=== PATIENT | female | born 1955 | race Caucasian/White ===

== ENCOUNTER 2018-08-27 14:34 | Emergency (ER) | payer MEDICAID ==
[~2018-08-27] VITALS: Ht 154.9 cm; Wt 122.5 kg
[2018-08-27 15:36] LABS: Basophils # (auto) 0 uL; Basophils % (auto) 0.8 % (0.0-2.0); Eosinophils # (auto) 0.2 uL; Eosinophils % (auto) 3.6 % (0.0-7.0); Hematocrit 49.2 % (36.0-46.0); Hemoglobin 16.4 g/dL (12.2-16.2); Lymphocytes # (auto) 0.7 uL; Lymphocytes % (auto) 11.9 % (10.0-50.0); Mean Corpuscular Hemoglobin 31.7 pg (28.0-32.0); Mean Corpuscular Hgb Conc. 33.3 g/dL (32.0-36.0); Mean Corpuscular Volume 95.1 fL (80.0-100.0); Monocytes # (auto) 0.6 uL; Monocytes % (auto) 9.3 % (0.0-12.0); Neutrophils # (auto) 4.5 uL; Neutrophils % (auto) 74.4 % (37.0-80.0); Nucleated Red Blood Cells % 0.2 %; Platelet Count (auto) 220 10^3/uL (140-450); Red Blood Cells 5.17 10^6/uL (4.0-5.20); Red Cell Distribution Width 16.2 % (11.8-14.3); White Blood Cell 6.1 10^3/uL (4.4-10.8)
[2018-08-27 15:56] LABS: Albumin 2.7 g/dL (3.4-5.0); Anion Gap 3 (5-15); Blood Urea Nitrogen 13 mg/dL (7-18); Calcium 8.5 mg/dL (8.5-10.1); Carbon Dioxide 33 mmol/L (21-32); Chloride 103 mmol/L (98-107); Glucose 97 mg/dL (74-106); Magnesium 2.2 mg/dL (1.6-2.6); Potassium 3.9 mmol/L (3.5-5.1); Sodium 139 mmol/L (136-145)
[2018-08-27 16:03] LABS: Alanine Aminotransferase 14 U/L (13-56); Alkaline Phosphatase 83 U/L (45-117); Aspartate Aminotransferase 8 U/L (15-37); BUN/Creatinine Ratio 17.1; Bilirubin, Total 0.5 mg/dL (0.2-1.0); GFR African American 99 mL/min; GFR Non-African American 82 mL/min; Total Protein 8.2 g/dL (6.4-8.2)
[2018-08-27] MEDS ORDERED: CLINDAMYCIN 600MG IV 50 ML IV ONE (16:30)
[2018-08-27 18:45] VITALS: BP 111/84
== END 2018-08-27 18:45 | disposition left against medical advice (07) ==
LOC: ER 14:34
DX: L03.313 Cellulitis of chest wall (principal); J44.9 Chronic obstructive pulmonary disease, unspecified; I11.0 Hypertensive heart disease with heart failure; I50.9 Heart failure, unspecified; Z87.891 Personal history of nicotine dependence; Z88.5 Allergy status to narcotic agent; Z88.0 Allergy status to penicillin; Z53.29 Procedure and treatment not carried out because of patient's decision for other reasons
CPT/HCPCS: 36415; 71046; 80053; 82962; 83735; 83880; 84484; 85025; 93005; 96365; 99285; J3490

== ENCOUNTER 2018-11-27 22:28 | Inpatient (IN) | payer MEDICAID ==
[~2018-11-27] VITALS: Ht 157.5 cm; Wt 96.9 kg
[~2018-11-27 22:28] MED LIST: CLIN1CAP4 PO; HYDR-4683 PO; SACC250C PO
[2018-11-27 22:59] LABS: Basophils # (auto) 0 uL; Eosinophils # (auto) 0 uL; Lymphocytes # (auto) 0.6 uL; Monocytes # (auto) 0.7 uL; Neutrophils # (auto) 7.5 uL
[2018-11-27] MEDS ORDERED: IPRATROPIUM BROM 0.5 MG/2.5ML INH SOL NEB ONE (23:00)
[2018-11-27] MEDS ORDERED: ALBUTEROL SULF 2.5 MG/0.5ML(0.5%) NEB SOLN NEB ONE (23:00)
[2018-11-27] MEDS ORDERED: LORazepam 2MG/ML-1ML VIAL IV ONE (23:00)
[2018-11-27 23:01] LABS: Basophils % (auto) 0.2 % (0.0-2.0); Hematocrit 53.2 % (36.0-46.0); Hemoglobin 17.9 g/dL (12.2-16.2); Mean Corpuscular Hemoglobin 31.8 pg (28.0-32.0); Mean Corpuscular Hgb Conc. 33.6 g/dL (32.0-36.0); Mean Corpuscular Volume 94.6 fL (80.0-100.0); Monocytes % (auto) 8.1 % (0.0-12.0); Neutrophils % (auto) 84.7 % (37.0-80.0); Nucleated Red Blood Cells % 0.3 %; Platelet Count (auto) 222 10^3/uL (140-450); Red Blood Cells 5.63 10^6/uL (4.0-5.20); Red Cell Distribution Width 13.9 % (11.8-14.3); White Blood Cell 8.9 10^3/uL (4.4-10.8)
[2018-11-27 23:08] LABS: Albumin 2.6 g/dL (3.4-5.0); BUN/Creatinine Ratio 27.2; Calcium 8.8 mg/dL (8.5-10.1); Magnesium 2.1 mg/dL (1.6-2.6); Potassium 3.6 mmol/L (3.5-5.1)
[2018-11-27 23:15] LABS: Bilirubin, Total 0.5 mg/dL (0.2-1.0); Total Protein 8.3 g/dL (6.4-8.2)
[2018-11-27] MEDS ORDERED: methylPREDNISolone SOD SUCC 125 MG/2 ML VL IV ONE (23:45)
[2018-11-28 00:24] VITALS: BP 109/64
[2018-11-28 02:16] LABS: Urine Bacteria FEW /hpf (None Seen); Urine Blood 1+ /uL (Negative); Urine Hyaline Cast FEW /lpf (0 - 2); Urine Mucus FEW (None Seen); Urine Specific Gravity 1.023 (1.001-1.035); Urine WBC 14 /hpf (0 - 5)
[2018-11-28] MEDS ORDERED: ONDANSETRON HCL 4 MG/2 ML VIAL IV PRN (05:00)
[2018-11-28] MEDS ORDERED: ALBUTEROL SULF 2.5 MG/0.5ML(0.5%) NEB SOLN NEB PRN (05:00)
[2018-11-28] MEDS ORDERED: NITROGLYCERIN 0.4 MG SL TAB SL PRN (05:00)
[2018-11-28] MEDS ORDERED: MORPHINE SULFATE 4 MG/ML SYR/VIAL IV PRN (05:00)
[2018-11-28] MEDS ORDERED: IPRATROPIUM BROM 0.5 MG/2.5ML INH SOL NEB PRN (05:00)
[2018-11-28] MEDS ORDERED: LEVOFLOXACIN 500MG 100 ML IV SCH (06:00)
[2018-11-28] MEDS ORDERED: ATORVASTATIN 20 MG TAB PO ONE (06:00)
[2018-11-28] MEDS ORDERED: ENOXAPARIN SOD 100 MG/1 ML SYRINGE SC ONE (06:00)
[2018-11-28] MEDS: ASPirin 81 mg TAB PO SCH (10:22)
[2018-11-28] MEDS: FAMOTIDINE 20 MG TAB PO SCH ×2 (10:22→22:22)
[2018-11-28] MEDS: methylPREDNISolone SOD SUCC 125 MG/2 ML VL IV SCH ×2 (10:22→22:21)
[2018-11-28] MEDS ORDERED: MORPHINE SULF INJ 2 MG/ML SYRINGE 1ML IV PRN (13:45)
[2018-11-28] MEDS: ALBUTEROL SULF 2.5 MG/0.5ML(0.5%) NEB SOLN NEB SCH ×3 (15:39→22:40)
[2018-11-28] MEDS: IPRATROPIUM BROM 0.5 MG/2.5ML INH SOL NEB SCH ×3 (15:40→22:41)
[2018-11-28 17:00] VITALS: BP 137/80
--- NOTE | 2018-11-28 17:20 | NUR ---
Telemetry admit from ER CHASIDY ROSENORA admitted to Telemetry unit after SBAR received. Patient oriented to Deepika Boothe, primary RN, unit, room, bed, and unit policies regarding patient care and visiting hours. Patient now on continuous telemetry monitoring, tele box # 25 and telemetry reading on arrival to unit is Sinus rhythm. Patient placed on bedside oxygen as ordered via oxymizer, VSS. Pt weighed by bedscale and encouraged to call if they need something. All questions and concerns addressed, patient verbalized understanding. No s/s of distress or sob noted will cont care
[2018-11-28] MEDS: Ensure Enlive Strawberry 8oz Bottle PO SCH (18:00)
--- NOTE | 2018-11-28 18:55 | NUR ---
Wound pics taken cleansed right lower extremity with wound cleanser, padded dry with sterile gauze, wound photos taken, applied alginate dressing and covered with Kerlix as ordered. Patient tolerated it well, no distress noted. Will endorse care to oncoming rn
[2018-11-28] MEDS ORDERED: CEPH500C PO (19:26)
[2018-11-28] MEDS ORDERED: SULF400I3 PO (19:26)
[2018-11-28] MEDS ORDERED: METH4TAB7 PO (19:26)
[2018-11-28] MEDS ORDERED: FLUT0.05 NAS (19:26)
[2018-11-28] MEDS ORDERED: LOSA-46 PO (19:26)
[2018-11-28] MEDS ORDERED: CARV3.1240 PO (19:26)
--- NOTE | 2018-11-28 19:40 | NUR ---
Opening Shift Note Assumed care of patient, awake and alert. No complains of pain. Patient on oxymizer at 6 LPM with O2sat at 90%. Instructed on POC and to call for assist PRN, will continue to monitor for changes Q1hr and PRN.
--- NOTE | 2018-11-28 20:15 | NUR ---
Per report, patient apparently have a pocket knife. Black backpack was checked by patient in front of security systems manager. No pocket knife seen. Per patient she probably left it at her place. Care continued.
[2018-11-28 21:42] VITALS: BP 123/56
[2018-11-28] MEDS: DOCUSATE SOD 100 MG CAP PO SCH (22:00)
[2018-11-28] MEDS: ATORVASTATIN 20 MG TAB PO SCH (22:22)
[2018-11-28] MEDS: BUDESONIDE (INHALATION) 0.5 MG/2 ML NEB NEB SCH (22:41)
[2018-11-29] MEDS: IPRATROPIUM BROM 0.5 MG/2.5ML INH SOL NEB SCH ×5 (02:16→19:39)
[2018-11-29] MEDS: ALBUTEROL SULF 2.5 MG/0.5ML(0.5%) NEB SOLN NEB SCH ×5 (02:16→19:39)
[2018-11-29 04:10] VITALS: BP 106/74
[2018-11-29 04:52] VITALS: BP 121/62
--- NOTE | 2018-11-29 06:35 | NUR ---
PT TAKEN OFF BIPAP AT THIS TIME AND PLACE DON 4LITERS OXYMIZER. SPO2 93%. NO S/S OF RESPIRATORY DISTRESS.
[2018-11-29] MEDS: Ensure Enlive Strawberry 8oz Bottle PO SCH ×3 (08:44→18:00)
[2018-11-29 08:53] VITALS: BP 112/60
[2018-11-29 08:53] LABS: Basophils # (auto) 0 uL; Basophils % (auto) 0.3 % (0.0-2.0); Eosinophils # (auto) 0 uL; Hematocrit 51.3 % (36.0-46.0); Hemoglobin 16.6 g/dL (12.2-16.2); Lymphocytes # (auto) 0.2 uL; Lymphocytes % (auto) 2.6 % (10.0-50.0); Mean Corpuscular Hemoglobin 31.6 pg (28.0-32.0); Mean Corpuscular Hgb Conc. 32.4 g/dL (32.0-36.0); Mean Corpuscular Volume 97.7 fL (80.0-100.0); Monocytes # (auto) 0.2 uL; Monocytes % (auto) 2.6 % (0.0-12.0); Neutrophils # (auto) 7.7 uL; Neutrophils % (auto) 94.5 % (37.0-80.0); Nucleated Red Blood Cells % 0.1 %; Platelet Count (auto) 152 10^3/uL (140-450); Red Blood Cells 5.25 10^6/uL (4.0-5.20); White Blood Cell 8.1 10^3/uL (4.4-10.8)
[2018-11-29] MEDS: DOCUSATE SOD 100 MG CAP PO SCH ×2 (10:00→21:48)
[2018-11-29] MEDS ORDERED: LEVOFLOXACIN 750MG 150 ML IV SCH (10:00)
[2018-11-29] MEDS: methylPREDNISolone SOD SUCC 125 MG/2 ML VL IV SCH ×2 (10:14→23:25)
[2018-11-29] MEDS: ASPirin 81 mg TAB PO SCH (10:15)
[2018-11-29] MEDS: ENOXAPARIN SOD 40 MG/0.4 ML SYRINGE SC SCH (10:15)
[2018-11-29] MEDS: FAMOTIDINE 20 MG TAB PO SCH ×2 (10:16→21:49)
[2018-11-29] MEDS: BUDESONIDE (INHALATION) 0.5 MG/2 ML NEB NEB SCH ×2 (10:46→19:40)
[2018-11-29 12:57] VITALS: BP 107/60
[2018-11-29 13:16] LABS: BUN/Creatinine Ratio 34.3; Calcium 8.5 mg/dL (8.5-10.1)
[2018-11-29 13:17] LABS: Albumin 2.3 g/dL (3.4-5.0); Bilirubin, Total 0.3 mg/dL (0.2-1.0); Total Protein 7.1 g/dL (6.4-8.2)
--- NOTE | 2018-11-29 14:30 | NUR ---
Patient provided bed bath Pt had her hair brushed and untangled by tech. Patient sitting up in bed. O2 at 10 L via oxymizer. Will cont to monitor. No acute distress or sob noted
--- NOTE | 2018-11-29 15:05 | NUR ---
Spoke to caser I spoke to Bren caser dish up person and informed her of pending social service consult. She states she will f/u tomorrow. Will cont care
[2018-11-29 16:57] VITALS: BP 130/75
--- NOTE | 2018-11-29 18:30 | NUR ---
Patient repositioned in bed no s/s of acute distress noted. Pt on Oxymizer at 10 L sat 88-91%. Flores patent, draining to gravity. RLE wound noted asymptomatic and dry. Call light within reach.
--- NOTE | 2018-11-29 18:45 | NUR ---
IV out I was informed by SUMMER Garcia that pt's IV noted out. Upon assessment, IV site noted bleeding. Pressure dressing applied. Pt tolerated well. Flores catheter noted mildly leaking, repositioned Flores cullen because pt noted tugging on it. Will endorse to oncoming rn. WHEELER at bedside to do complete linen change at this time.
--- NOTE | 2018-11-29 19:13 | NUR ---
Spoke to MD I spoke to MD Bethea and clarified order for "communication order doxy". Per MD d/c Santos and order Doxycycline 100mg PO BID. Will input correct order and I informed Primary rn Radha.
[2018-11-29] MEDS: DOXYCYCLINE 100 MG TAB/CAP PO SCH (21:49)
[2018-11-29] MEDS: ATORVASTATIN 20 MG TAB PO SCH (21:49)
[2018-11-29 22:00] VITALS: BP 112/62
[2018-11-29] MEDS ORDERED: ALBUTEROL SULF 2.5 MG/0.5ML(0.5%) NEB SOLN ONE (22:23)
[2018-11-29] MEDS ORDERED: IPRATROPIUM BROM 0.5 MG/2.5ML INH SOL ONE (22:23)
--- NOTE | 2018-11-29 22:44 | NUR ---
Respiratory note: PT REFUSE BIPAP AT THIS TIME, STATES SHE IS NOT GOING TO WEAR IT TONIGHT
--- NOTE | 2018-11-29 23:25 | NUR ---
Solumedrol IV given as scheduled, as ordered by MD. When Patient was asked why she refused BIPAP, she denied refusing treatment, saying that respiratory therapist apparently told him that she does not need to wear the BIPAP machine. Respiratory therapist paged. Care continued.
--- NOTE | 2018-11-29 23:30 | NUR ---
Call back received from respiratory therapist. updated with patient's status. Requested Respiratory therapist to be at bedside to clarify things.
--- NOTE | 2018-11-29 23:42 | NUR ---
Respiratory note:SPOKE TO PT AT THIS TIME ABOUT WEARING BIPAP WITH RN AT BEDSIDE, PT CONTINUES TO REFUSE BIPAP. PT NOTIFIED THAT COULD POSSIBLY BE THE OUTCOME IF SHE DOESNT WEAR IT. PT CONTINUES TO REFUSE
--- NOTE | 2018-11-29 23:42 | NUR ---
At bedside with respiratory therapist. Respiratory therapist asked her if she's ready for the BIPAP. Patient refused. Respiratory therapist and myself re-educated patient regarding the benefits of the treatment, versus the risks of her refusal of treatment which includes, but not limited to injury, worsening of her present condition, even . Patient continued to refuse treatment. Care continued.
--- NOTE | 2018-11-30 | NUR ---
Patient asked to sign paper that she is refusing treatment. Instead of signing, patient wrote on the paper that she has been forced and threatened. No such thing occurred. Patient saying that her numbers are good and that she does not need further treatment at this time. Even with re-education, patient insisting that she does not need to wear BIPAP machine. Yesterday, patient was able to tolerate 6LPM oxymizer. Respiratory had been following up with patient and adjusting oxymizer. At this time, patient has to be on 10 LPM oxymizer. No changes in the patient's perception. Care continued.
[2018-11-30] MEDS: ACETAMINOPHEN 325 MG TAB PO PRN (02:19)
--- NOTE | 2018-11-30 02:19 | NUR ---
Patient complained of headache. Tylenol given as ordered by . Care continued.
[2018-11-30] MEDS: HYDROcodone-ACET 5/325MG TAB PO PRN ×2 (03:22→21:29)
--- NOTE | 2018-11-30 03:23 | NUR ---
Patient complained she is still in pain. [place] PO given per prn for pain. Care continued.
[2018-11-30 05:00] VITALS: BP 131/55
[2018-11-30] MEDS: ALBUTEROL SULF 2.5 MG/0.5ML(0.5%) NEB SOLN NEB SCH ×4 (05:56→20:27)
[2018-11-30] MEDS: BUDESONIDE (INHALATION) 0.5 MG/2 ML NEB NEB SCH ×2 (05:56→20:27)
[2018-11-30] MEDS: IPRATROPIUM BROM 0.5 MG/2.5ML INH SOL NEB SCH ×4 (05:57→20:27)
[2018-11-30] MEDS: methylPREDNISolone SOD SUCC 125 MG/2 ML VL IV SCH ×3 (06:21→18:01)
--- NOTE | 2018-11-30 07:15 | NUR ---
Opening Shift Note Report received and assumed care of patient, awake and alert. Oxymizer at 10 liters in use continues pulse oximeter in used. No S/S of distress/SOB c/o tolerable back pain. Instructed on POC,nursing routines,call light within reach patient reminded instructed to call for assistance and PRN, will continue to monitor for changes Q1hr and PRN.
[2018-11-30] MEDS: Ensure Enlive Strawberry 8oz Bottle PO SCH ×3 (08:00→18:01)
[2018-11-30 09:00] VITALS: BP 135/73
[2018-11-30] MEDS: ENOXAPARIN SOD 40 MG/0.4 ML SYRINGE SC SCH (09:59)
[2018-11-30] MEDS: DOXYCYCLINE 100 MG TAB/CAP PO SCH ×2 (09:59→21:27)
[2018-11-30] MEDS: DOCUSATE SOD 100 MG CAP PO SCH ×2 (10:00→21:36)
[2018-11-30] MEDS: ASPirin 81 mg TAB PO SCH (10:00)
[2018-11-30] MEDS: FAMOTIDINE 20 MG TAB PO SCH ×2 (10:00→21:28)
--- NOTE | 2018-11-30 10:00 | NUR ---
ASSISTED TO BEDSIDE COMMODE WITH MINIMAL ASSISTANCE,HAD A BOWEL MOVEMENT
[2018-11-30 13:00] VITALS: BP 143/74
--- NOTE | 2018-11-30 13:00 | NUR ---
MD VISIT DR. GROSS HERE TO SEE AND EXAMINED PATIENT
--- NOTE | 2018-11-30 15:26 | NUR ---
PATIENT HAS BEEN ACCEPTED BY [facility] [place] [facility] [phone]. START OF CARE WILL BE 24 TO 48 HOURS POST DISCHARGE.
[2018-11-30 17:10] VITALS: BP 118/65
--- NOTE | 2018-11-30 18:48 | NUR ---
No sob,no distress no c/o pain
--- NOTE | 2018-11-30 19:15 | NUR ---
REPORT GIVEN TO EMMY FOR CONTINUATION OF CARE NO DISTRESS NO DISCOMFORT
--- NOTE | 2018-11-30 19:34 | NUR ---
Opening Shift Note SBAR report received from MISSY Rodríguez. Assumed care of patient, awake and alert 4x, resting in bed,eating her dinner. At tele unit receiving Tx for ACUTE COPd EXACERBATION. Denies distress/SOB or pain at the moment, wearing Oxymizer at 10L. Instructed on POC, Pt states that " She does NOT want the Bipap Machine tonight". Also instructed to call for assist PRN, will continue to monitor for changes Q1hr and PRN
[2018-11-30 20:24] VITALS: BP 123/63
[2018-11-30] MEDS: ATORVASTATIN 20 MG TAB PO SCH (21:28)
[2018-11-30] MEDS: TEMAZEPAM 15 MG CAP PO PRN (21:28)
[2018-11-30 22:00] VITALS: BP 123/63
--- NOTE | 2018-11-30 23:01 | NUR ---
PATIENT CARE ENDORSED TO MISSY BARRIENTOS. PT RESTING IN ROOM, STABLE, REFUSES TO WEAR BiPAP.
--- NOTE | 2018-11-30 23:02 | NUR ---
RECEIVED REPORT FROM CRYSTAL SHAH
--- NOTE | 2018-11-30 23:15 | NUR ---
ROUNDS PATIENT SLEEPING IN BED, OXYMIZER AT 10l SATURATION AT 93%, RESPIRATIONS EVEN AND UNLABORED. NO S/S OF PAIN OR DISTRESS NOTED. PER REPORT PATIENT REFUSING BIPAP.
[2018-12-01] MEDS: methylPREDNISolone SOD SUCC 125 MG/2 ML VL IV SCH ×6 (01:50→23:49)
[2018-12-01 05:22] VITALS: BP 126/70
[2018-12-01] MEDS: HYDROcodone-ACET 5/325MG TAB PO PRN ×2 (06:01→20:49)
[2018-12-01] MEDS: ALBUTEROL SULF 2.5 MG/0.5ML(0.5%) NEB SOLN NEB SCH ×4 (06:14→19:20)
[2018-12-01] MEDS: IPRATROPIUM BROM 0.5 MG/2.5ML INH SOL NEB SCH ×4 (06:14→19:20)
--- NOTE | 2018-12-01 06:14 | NUR ---
PT IS AWAKE, ALERT AND ORIENTED. PT IS OFF BIPAP. PT ON 10L/MIN VIA OXYMIZER. 91%-93% O2 SATS, HR 71 BPM, RR22, BS ARE INSPIRATORY AND INSPIRATORY DIMINISHED, SKIN IS WARM AND DRY TO THE TOUCH. NO SOB OR ANY OTHER RESPIRATORY DISTRESS NOTICED. PT REQUESTING TO HAVE THE BIPAP TAKEN "OFF THE ROOM" SHE WILL "NOT WEAR IT." PT ESTATES SHE DOES "NOT NEED IT NOR WANT IT." MN TX GIVEN AT THIS TIME WITH 2.5MG ALBUTEROL AND 0.5MG ATROVENT VIA MOUTH PIECE. NO ADVERSE REACTION NOTED. WILL CONTINUE TO MONITOR PT. MISSY BLACK WAS NOTIFIED.
[2018-12-01] MEDS: Ensure Enlive Strawberry 8oz Bottle PO SCH ×3 (08:58→17:55)
[2018-12-01 09:04] VITALS: BP 110/64
[2018-12-01] MEDS: DOXYCYCLINE 100 MG TAB/CAP PO SCH ×2 (09:51→22:08)
[2018-12-01] MEDS: ENOXAPARIN SOD 40 MG/0.4 ML SYRINGE SC SCH (09:51)
[2018-12-01] MEDS: FAMOTIDINE 20 MG TAB PO SCH ×2 (09:51→22:08)
[2018-12-01] MEDS: DOCUSATE SOD 100 MG CAP PO SCH ×2 (09:52→22:08)
[2018-12-01] MEDS: ASPirin 81 mg TAB PO SCH (09:52)
--- NOTE | 2018-12-01 10:00 | NUR ---
NO C/O PAIN, NO DISTRESS NO C/O SOB
[2018-12-01] MEDS: BUDESONIDE (INHALATION) 0.5 MG/2 ML NEB NEB SCH ×2 (10:02→20:59)
--- NOTE | 2018-12-01 11:20 | NUR ---
C/O DIZZINESS PATIENT STATED NOT SURE IF ITS FROM THE ASPIRIN,STATED SHE GETS IT EVERYDAY WHEN SHE TAKES HER MEDICATION. PATIENT NOTED ROCKING HER SELF BACK AND FORTH,PATIENT MADE AWARE OF HER ROCKING MOVEMENT CAN CAUSE DIZZINESS .
[2018-12-01 13:00] VITALS: BP 119/51
--- NOTE | 2018-12-01 13:00 | NUR ---
DR. PAGAN INFORMED OF C/O DIZZINESS
[2018-12-01] MEDS ORDERED: MORPHINE SULFATE 4 MG/ML SYR/VIAL IV PRN (14:00)
[2018-12-01] MEDS ORDERED: MORPHINE SULF INJ 2 MG/ML SYRINGE 1ML IV PRN (14:00)
--- NOTE | 2018-12-01 15:47 | NUR ---
C/o of soreness under breast,checked and assessed moisture redness noted, informed orders received
[2018-12-01 17:00] VITALS: BP 115/62
--- NOTE | 2018-12-01 17:16 | NUR ---
assessment Patient is a 63 year old female who is alert and oriented. Prior to admission patient lived home with her sister Melissa and functioned with assistance. Per patient she has a fww and 02 for home use. Patient informed me she does not like living with her sister Melissa. I have offered patient resources for board and cares and room and boards. Patient refused stating she does not want to pay for placement she has bills. Patients post discharge needs to be determined prior to discharge. I have also provided patient with [facility] resource. I informed patient she has a right to speak to a social work therapist regarding all care. I informed patient she has a right to participate in any and all discharge planning. Patient is aware of visiting hours on the hospital floor. I informed patient she has a right to privacy. Patient does not have a POA and advanced directive. I have offered patient information on POA and advanced directives. I informed the patient the advantages and benefits of having an Advanced Directive. Patient verbalized understanding and agreed to discharge plan. Addendum: 12/01/18 at 1720 by Letha SERNA Amended: Links added.
--- NOTE | 2018-12-01 19:13 | NUR ---
Report given to incoming NOC shift RN,patient in no distress nod discomfort
--- NOTE | 2018-12-01 21:30 | NUR ---
HAND OFF REPORT GIVEN PATIENT STABLE AT THIS TIME. NO DISTRESS OR PAIN NOTED
[2018-12-01 22:00] VITALS: BP 116/62
[2018-12-01] MEDS: ATORVASTATIN 20 MG TAB PO SCH (22:08)
[2018-12-01] MEDS: NYSTATIN TOPICAL POWDER 15GM TOP SCH (22:09)
[2018-12-02 05:00] VITALS: BP 148/77
[2018-12-02] MEDS: methylPREDNISolone SOD SUCC 125 MG/2 ML VL IV SCH ×3 (06:03→17:56)
[2018-12-02 06:23] LABS: Basophils # (auto) 0 uL; Eosinophils # (auto) 0 uL; Hematocrit 46.2 % (36.0-46.0); Hemoglobin 15.3 g/dL (12.2-16.2); Lymphocytes # (auto) 0.1 uL; Lymphocytes % (auto) 1.6 % (10.0-50.0); Mean Corpuscular Hemoglobin 31.4 pg (28.0-32.0); Mean Corpuscular Hgb Conc. 33.2 g/dL (32.0-36.0); Mean Corpuscular Volume 94.4 fL (80.0-100.0); Monocytes # (auto) 0.4 uL; Monocytes % (auto) 4.5 % (0.0-12.0); Neutrophils # (auto) 7.9 uL; Neutrophils % (auto) 93.9 % (37.0-80.0); Platelet Count (auto) 272 10^3/uL (140-450); Red Blood Cells 4.89 10^6/uL (4.0-5.20); Red Cell Distribution Width 13.7 % (11.8-14.3); White Blood Cell 8.4 10^3/uL (4.4-10.8)
[2018-12-02 06:28] LABS: BUN/Creatinine Ratio 46.6; Calcium 8.4 mg/dL (8.5-10.1); Potassium 4.5 mmol/L (3.5-5.1)
[2018-12-02] MEDS: HYDROcodone-ACET 5/325MG TAB PO PRN (07:15)
--- NOTE | 2018-12-02 07:20 | NUR ---
Patient complaining of sore throat and itchiness, [place] given. Informed dayshift MISSY Avendaoñ to request for medication if symptoms not relieved.
--- NOTE | 2018-12-02 07:40 | NUR ---
OPENING NOTE Assumed care of patient from NOC RNTori. Patient awake and alert with no S/S of distress/SOB or pain. Oxymizer in position, connected to 10L 02. Patient sitting on side of bed, leaning on side table. States that it's "easier for me to breathe in this position". Flores catheter intact, patent and hung below bed. Instructed on POC and to call for assist PRN, verbalized understanding. Bed in lowest, locked position with side rails up x2. Fall precautions in place and call light within reach. Will continue to monitor for changes Q1hr and PRN.
[2018-12-02] MEDS: IPRATROPIUM BROM 0.5 MG/2.5ML INH SOL NEB SCH ×4 (08:03→19:18)
[2018-12-02] MEDS: ALBUTEROL SULF 2.5 MG/0.5ML(0.5%) NEB SOLN NEB SCH ×4 (08:04→19:18)
[2018-12-02] MEDS: Ensure Enlive Strawberry 8oz Bottle PO SCH ×3 (08:19→18:00)
[2018-12-02 08:26] VITALS: BP 143/65
[2018-12-02] MEDS: ASPirin 81 mg TAB PO SCH (09:49)
[2018-12-02] MEDS: FAMOTIDINE 20 MG TAB PO SCH ×2 (09:50→22:20)
[2018-12-02] MEDS: ENOXAPARIN SOD 40 MG/0.4 ML SYRINGE SC SCH (09:50)
[2018-12-02] MEDS: NYSTATIN TOPICAL POWDER 15GM TOP SCH ×2 (09:50→22:20)
[2018-12-02] MEDS: DOXYCYCLINE 100 MG TAB/CAP PO SCH ×2 (09:50→22:20)
[2018-12-02] MEDS: DOCUSATE SOD 100 MG CAP PO SCH ×2 (09:50→22:20)
[2018-12-02] MEDS: BUDESONIDE (INHALATION) 0.5 MG/2 ML NEB NEB SCH ×2 (10:41→19:18)
--- NOTE | 2018-12-02 12:30 | NUR ---
RT NOTE: PT PLACED ONTO 80% COOL AEROSOL PER DR WESTFALL ORDERS. ABG ATTEMPTED TWICE BUT WAS UNSUCCESSFUL. PAGING ANOTHER RT TO ASSIST.
--- NOTE | 2018-12-02 12:54 | NUR ---
Nutrition Assessment Notes please see attached link for complete assessment Est. Needs BW [id number] kcal (20-23 kcal/kgBW), 71-78 gms pro (1.0-1.1 gms/kgBW). Will continue to monitor pertinent labs and reassess nutrient need prn Addendum: 12/02/18 at [address] Amended: Links added.
[2018-12-02 13:00] VITALS: BP 119/74
--- NOTE | 2018-12-02 14:47 | NUR ---
RT NOTE: PT O2 DECREASED FROM 80% TO 50% VIA COOL AEROSOL.
[2018-12-02 17:00] VITALS: BP 149/84
--- NOTE | 2018-12-02 17:39 | NUR ---
PAGED Paged on-call hospitalist. Patient C/O itching in ears and swollen throat. No S/S of distress noted. Patient is requesting Benadryl. Awaiting call back.
--- NOTE | 2018-12-02 17:55 | NUR ---
OXYGEN MASK Patient refusing to wear cool mist mask. States that "her throat feels swollen and the mask is making it harder to breathe". States that she can breathe better with Oxymizer. Patient currently wearing 10L O2 with Oxymizer. Still awaiting call back from representative government relations hospitalist. RT also paged.
[2018-12-02] MEDS ORDERED: diphenhdrAMINE HCL 50 MG/1 ML VL IV ONE (19:00)
--- NOTE | 2018-12-02 19:40 | NUR ---
OPENING NOTE PATIENT SITTING UP AT BEDSIDE ON 10L OXYMIZER TALKING TO FAMILY MEMBER AT BEDSIDE. 02 SAT CURRENTLY 94%, HR 105. PATIENT GIVEN BENADRYL 1 TIME DOSE ORDERED FOR ITCHING. IV TO LEFT WRIST NOTED, SALINE FLUSHED. LUNG SOUNDS DIMINISHED THROUGHOUT. EASON CATHETER EMPTIED AT THIS TIME, CLEAR YELLOW URINE NOTED. EASON PATENT AND DRAINING TO GRAVITY. CALL LIGHT WITHIN REACH. WILL CONTINUE TO MONITOR.
--- NOTE | 2018-12-02 19:45 | NUR ---
CLOSING NOTE Endorsed care of patient to NOC Ivette LOUIS.
[2018-12-02 22:00] VITALS: BP 148/84
[2018-12-02] MEDS: ATORVASTATIN 20 MG TAB PO SCH (22:20)
[2018-12-03] MEDS: methylPREDNISolone SOD SUCC 125 MG/2 ML VL IV SCH ×4 (00:13→18:41)
--- NOTE | 2018-12-03 03:30 | NUR ---
ROUNDS PATIENT RESTING IN BED WITH EYES CLOSED. RESPIRATIONS EVEN AND REGULAR. NO S/S OF DISTRESS NOTED. O2 SAT AT 99% ON 10L OXYMIZER, HR 76BPM. BED ALARM ON. CALL LIGHT WITHIN REACH.
[2018-12-03 05:52] VITALS: BP 127/78
[2018-12-03] MEDS: IPRATROPIUM BROM 0.5 MG/2.5ML INH SOL NEB SCH ×4 (06:52→19:38)
[2018-12-03] MEDS: ALBUTEROL SULF 2.5 MG/0.5ML(0.5%) NEB SOLN NEB SCH ×4 (06:53→19:38)
--- NOTE | 2018-12-03 07:45 | NUR ---
PT RESTING IN BED WITH EYES CLOSED. ON 8L VIA OXYMIZER BREATHING EVEN UNLABORED. NO S/S OF ACUTE DISTRESS NOTED. BED LOCKED IN THE LOWEST POSITION, CALL LIGHT WITHIN EASY REACH, WILL CONTINUE CARE.
[2018-12-03 08:00] VITALS: BP 135/74
[2018-12-03 08:58] VITALS: BP 135/74
[2018-12-03] MEDS: FAMOTIDINE 20 MG TAB PO SCH ×2 (09:48→22:38)
[2018-12-03] MEDS: DOXYCYCLINE 100 MG TAB/CAP PO SCH ×2 (09:48→22:37)
[2018-12-03] MEDS: DOCUSATE SOD 100 MG CAP PO SCH ×2 (09:48→22:38)
[2018-12-03] MEDS: ASPirin 81 mg TAB PO SCH (09:48)
[2018-12-03] MEDS: ENOXAPARIN SOD 40 MG/0.4 ML SYRINGE SC SCH (09:49)
[2018-12-03] MEDS: Ensure Enlive Strawberry 8oz Bottle PO SCH ×3 (09:49→18:41)
[2018-12-03] MEDS: BUDESONIDE (INHALATION) 0.5 MG/2 ML NEB NEB SCH ×2 (10:00→19:38)
[2018-12-03] MEDS: NYSTATIN TOPICAL POWDER 15GM TOP SCH ×2 (10:00→22:37)
[2018-12-03 13:00] VITALS: BP 137/73
[2018-12-03 17:59] VITALS: BP 138/81
--- NOTE | 2018-12-03 19:35 | NUR ---
CARE ENDORSED TO MOO LOUIS.
[2018-12-03 21:42] VITALS: BP 123/68
[2018-12-03] MEDS: ATORVASTATIN 20 MG TAB PO SCH (22:37)
[2018-12-04] VITALS (7 sets, daily range): BP systolic 119–143; BP diastolic 70–86
[2018-12-04] MEDS: methylPREDNISolone SOD SUCC 125 MG/2 ML VL IV SCH ×4 (00:25→17:48)
[2018-12-04] MEDS: BUDESONIDE (INHALATION) 0.5 MG/2 ML NEB NEB SCH ×2 (06:30→17:58)
[2018-12-04] MEDS: ALBUTEROL SULF 2.5 MG/0.5ML(0.5%) NEB SOLN NEB SCH ×4 (06:30→17:58)
[2018-12-04] MEDS: IPRATROPIUM BROM 0.5 MG/2.5ML INH SOL NEB SCH ×4 (06:30→17:58)
[2018-12-04] MEDS: DOCUSATE SOD 100 MG CAP PO SCH ×2 (10:22→21:35)
[2018-12-04] MEDS: ASPirin 81 mg TAB PO SCH (10:23)
[2018-12-04] MEDS: DOXYCYCLINE 100 MG TAB/CAP PO SCH ×2 (10:23→21:37)
[2018-12-04] MEDS: Ensure Enlive Strawberry 8oz Bottle PO SCH ×3 (10:23→17:49)
[2018-12-04] MEDS: ENOXAPARIN SOD 40 MG/0.4 ML SYRINGE SC SCH (10:23)
[2018-12-04] MEDS: FAMOTIDINE 20 MG TAB PO SCH ×2 (10:23→21:35)
[2018-12-04] MEDS: NYSTATIN TOPICAL POWDER 15GM TOP SCH ×2 (10:26→21:37)
--- NOTE | 2018-12-04 14:00 | NUR ---
Flores catheter dc'd F/C leaking. Flores dc'd with clean technique following deflation of balloon. Patient tolerated well with no complaints of pain. Continue care.
--- NOTE | 2018-12-04 14:15 | NUR ---
Flores catheter insertion Patient educated on catheter and reason for insertion. All questions answered. Flores catheter 14 guage Liberian inserted with clean sterile technique. Patient tolerated well.
--- NOTE | 2018-12-04 18:08 | NUR ---
Respiratory note: ABG RESULTS REPORTED TO DR. ALVAREZ. NO NEW RESPIRATORY ORDERS GIVEN, WILL CONTINUE TO MONITOR.
--- NOTE | 2018-12-04 19:40 | NUR ---
OPENING SHIFT NOTE RECEIVED REPORT FROM DAYSHIFT RN. PATIENT SITTING ON SIDE OF BED. NO S/S OF DISTRESS OR SOB. NO PAIN NOTED OR REPORTED. PATIENT A/O X4. PATIENT ON 8L OXYMIZER, O2 SATURATION 95%. PATIENT COMPLAINS OF RASH UNDER RIGHT BREAST. CLEANED, DRIED, APPLIED ANTI FUNGAL CREAM AND NYSTATIN TO AFFECTED AREA. UPDATED PATIENT ON POC, VERBALIZED UNDERSTANDING. BED LOCKED IN LOW POSITION, CALL LIGHT WITHIN REACH. WILL CONTINUE TO MONITOR PATIENT Q1HR AND PRN.
--- NOTE | 2018-12-04 19:56 | NUR ---
CARE ENDORSED TO EVELYN LOUIS.
[2018-12-04] MEDS: ATORVASTATIN 20 MG TAB PO SCH (21:35)
[2018-12-04] MEDS ORDERED: diphenhdrAMINE HCL 25 MG CAP PO ONE (22:00)
[2018-12-05] MEDS: methylPREDNISolone SOD SUCC 125 MG/2 ML VL IV SCH ×5 (00:18→23:59)
[2018-12-05 05:12] VITALS: BP 149/83
[2018-12-05] MEDS: ALBUTEROL SULF 2.5 MG/0.5ML(0.5%) NEB SOLN NEB SCH ×5 (07:05→22:06)
[2018-12-05] MEDS: IPRATROPIUM BROM 0.5 MG/2.5ML INH SOL NEB SCH ×5 (07:06→22:06)
[2018-12-05] MEDS: BUDESONIDE (INHALATION) 0.5 MG/2 ML NEB NEB SCH ×2 (07:06→18:53)
--- NOTE | 2018-12-05 07:45 | NUR ---
Opening Shift Note Assumed care of patient, awake and alert. On 10l O2 via Oxymizer, no s/s or sob or discomfort at this time. Instructed on POC and to call for assist PRN, Bed locked in the lowest position, call light within easy reach, will continue to monitor for changes Q1hr and PRN.
[2018-12-05 08:00] VITALS: BP 127/81
[2018-12-05] MEDS: Ensure Enlive Strawberry 8oz Bottle PO SCH ×3 (08:37→17:18)
[2018-12-05 09:23] VITALS: BP 128/81
[2018-12-05] MEDS: DOXYCYCLINE 100 MG TAB/CAP PO SCH ×2 (09:34→22:27)
[2018-12-05] MEDS: DOCUSATE SOD 100 MG CAP PO SCH ×2 (09:34→22:28)
[2018-12-05] MEDS: ASPirin 81 mg TAB PO SCH (09:35)
[2018-12-05] MEDS: ENOXAPARIN SOD 40 MG/0.4 ML SYRINGE SC SCH (09:35)
[2018-12-05] MEDS: NYSTATIN TOPICAL POWDER 15GM TOP SCH ×2 (09:35→22:28)
[2018-12-05] MEDS: FAMOTIDINE 20 MG TAB PO SCH ×2 (09:35→22:27)
[2018-12-05 12:30] VITALS: BP 126/78
--- NOTE | 2018-12-05 15:53 | NUR ---
Nutrition Follow-up Notes Wt.: 120.0 kg as of yesterday. Pt's on oxymizer, asleep, no immediate family member at bedside during rounds this morning. Pt's no signs of distress noted earlier, currently on Cardiac: 2 gms Na, Low Chol, Low Fat diet with adequate PO intake aeb 80% ave. consumed meals (x6) in last 2.5 days. Noted pt's for active ENT consult. Est. Needs BW [id number] kcal (20-23 kcal/kgBW), 71-78 gms pro (1.0-1.1 gms/kgBW). Will continue to monitor pertinent labs and reassess nutrient need prn Labs: No new labs since 12/02/18 Gluc 132 H, Cl 95 L, CO2 35 H, BUN 27 H, Ca 8.4 L; Alb 2.3 L. Skin: Sourav scale 16, mod risk, pt's right lower extremity open wound per prototype fabricator. Pls refer for Wound care consult prn. GI: Pt had 1 BM yesterday per prototype fabricator. PES: Altered nutrition related lab values r/t current/chronic medical condition aeb elev BUN, hypocalcemia, mild hypoalb Obesity r/t food intake more than body requirement aeb 240% IBW. BMI 48.4 kg/m2 and increased body adiposity. Will continue to monitor PO intake, skin status, pertinent labs and weight trend. F/u in 3 to 5 days. Rec.: 1.) Consider to continue monitoring pertinent labs; If Albumin level continues trending down, consider Prostat 1 pkt BID. 3.) Consider daily MVI with minerals and Asc acid 500 mgs BID. 3.) Continue close supervision during meals. 4.) Refer pt to RD for further nutrition education and weight monitoring upon discharge. 5.) Continue current plan of care.
[2018-12-05 16:21] VITALS: BP 119/68
--- NOTE | 2018-12-05 16:35 | NUR ---
OBTAINED NEW ORDER FROM DR. POLLARD, BENADRYL 25MG IV Q6HR PRN. ORDER READ BACK AND VERIFIED, WILL PUT IN ORDER.
--- NOTE | 2018-12-05 16:42 | NUR ---
DR. POLLARD AT BEDSIDE.
[2018-12-05] MEDS: diphenhdrAMINE HCL 50 MG/1 ML VL IV PRN ×3 (17:18→23:10)
--- NOTE | 2018-12-05 19:48 | NUR ---
CARE ENDORSED TO RADHA LOUIS.
[2018-12-05 21:58] VITALS: BP 118/55
[2018-12-05] MEDS: ATORVASTATIN 20 MG TAB PO SCH (22:26)
[2018-12-05] MEDS: HYDROcodone-ACET 5/325MG TAB PO PRN (22:28)
[2018-12-05] MEDS: TEMAZEPAM 15 MG CAP PO PRN (22:28)
[2018-12-06 05:00] VITALS: BP 124/64
[2018-12-06] MEDS: BUDESONIDE (INHALATION) 0.5 MG/2 ML NEB NEB SCH ×2 (06:07→19:29)
[2018-12-06] MEDS: ALBUTEROL SULF 2.5 MG/0.5ML(0.5%) NEB SOLN NEB SCH ×4 (06:07→19:28)
[2018-12-06] MEDS: IPRATROPIUM BROM 0.5 MG/2.5ML INH SOL NEB SCH ×4 (06:07→19:28)
[2018-12-06] MEDS: methylPREDNISolone SOD SUCC 125 MG/2 ML VL IV SCH ×4 (06:30→23:42)
[2018-12-06 06:36] LABS: Basophils # (auto) 0 uL; Basophils % (auto) 0.1 % (0.0-2.0); Eosinophils # (auto) 0 uL; Hematocrit 45.7 % (36.0-46.0); Hemoglobin 15.1 g/dL (12.2-16.2); Lymphocytes # (auto) 0.1 uL; Lymphocytes % (auto) 1.6 % (10.0-50.0); Mean Corpuscular Hemoglobin 31.2 pg (28.0-32.0); Mean Corpuscular Hgb Conc. 33.1 g/dL (32.0-36.0); Mean Corpuscular Volume 94.2 fL (80.0-100.0); Monocytes # (auto) 0.4 uL; Monocytes % (auto) 4.7 % (0.0-12.0); Neutrophils # (auto) 8.4 uL; Neutrophils % (auto) 93.6 % (37.0-80.0); Nucleated Red Blood Cells % 0.2 %; Platelet Count (auto) 285 10^3/uL (140-450); Red Blood Cells 4.85 10^6/uL (4.0-5.20); Red Cell Distribution Width 13.8 % (11.8-14.3)
[2018-12-06 06:53] LABS: BUN/Creatinine Ratio 39.4; Calcium 8.9 mg/dL (8.5-10.1); Potassium 4.6 mmol/L (3.5-5.1)
--- NOTE | 2018-12-06 07:30 | NUR ---
Opening Shift Note Received report from Ashli LOUIS. Assumed care of patient, awake and alert. No S/S of distress/SOB or pain. Noted on 10lpm of oxygen via oxymizer. Assisted patient in her bowel movement. NOted fungal skin infection on under the right breast. Instructed on POC and to call for assist PRN, will continue to monitor for changes Q1hr and PRN.
[2018-12-06] MEDS: Ensure Enlive Strawberry 8oz Bottle PO SCH ×3 (07:39→17:40)
[2018-12-06 08:00] VITALS: BP 149/85
[2018-12-06 08:49] VITALS: BP 149/85
[2018-12-06] MEDS: DOCUSATE SOD 100 MG CAP PO SCH ×2 (09:41→22:14)
[2018-12-06] MEDS: NYSTATIN TOPICAL POWDER 15GM TOP SCH ×2 (09:41→22:15)
[2018-12-06] MEDS: DOXYCYCLINE 100 MG TAB/CAP PO SCH ×2 (09:41→22:15)
[2018-12-06] MEDS: FAMOTIDINE 20 MG TAB PO SCH ×2 (09:41→22:14)
[2018-12-06] MEDS: ASPirin 81 mg TAB PO SCH (09:41)
[2018-12-06] MEDS: ENOXAPARIN SOD 40 MG/0.4 ML SYRINGE SC SCH (09:41)
[2018-12-06] MEDS: diphenhdrAMINE HCL 50 MG/1 ML VL IV PRN ×2 (11:10→22:57)
--- NOTE | 2018-12-06 11:15 | NUR ---
ISAMAR ROSEN states they want to leave the floor Against Medical Advice (AMA) to go outside and smoke. Patient encouraged to stay on floor and not smoke. Dr notified of patient's wishes. Patient advised of the risks and benefits of leaving AMA. Patient verbalized understanding and signed required AMA form.
[2018-12-06 13:01] VITALS: BP 120/68
[2018-12-06 17:00] VITALS: BP 148/88
[2018-12-06] MEDS: HYDROcodone-ACET 5/325MG TAB PO PRN (18:00)
[2018-12-06 22:00] VITALS: BP 140/106
[2018-12-06] MEDS: ATORVASTATIN 20 MG TAB PO SCH (22:15)
[2018-12-06] MEDS: TEMAZEPAM 15 MG CAP PO PRN (22:15)
[2018-12-07] MEDS: HYDROcodone-ACET 5/325MG TAB PO PRN ×2 (04:26→21:22)
[2018-12-07 05:00] VITALS: BP 111/49
[2018-12-07 06:03] LABS: BUN/Creatinine Ratio 40.6; Calcium 8.4 mg/dL (8.5-10.1)
[2018-12-07 06:15] LABS: Basophils # (auto) 0 uL; Basophils % (auto) 0.2 % (0.0-2.0); Eosinophils # (auto) 0 uL; Hematocrit 46.6 % (36.0-46.0); Hemoglobin 15.5 g/dL (12.2-16.2); Lymphocytes # (auto) 0.2 uL; Lymphocytes % (auto) 1.7 % (10.0-50.0); Mean Corpuscular Hemoglobin 32.1 pg (28.0-32.0); Mean Corpuscular Hgb Conc. 33.3 g/dL (32.0-36.0); Mean Corpuscular Volume 96.4 fL (80.0-100.0); Monocytes # (auto) 0.4 uL; Monocytes % (auto) 4.6 % (0.0-12.0); Neutrophils # (auto) 8.6 uL; Neutrophils % (auto) 93.5 % (37.0-80.0); Platelet Count (auto) 269 10^3/uL (140-450); Red Blood Cells 4.84 10^6/uL (4.0-5.20); White Blood Cell 9.2 10^3/uL (4.4-10.8)
[2018-12-07] MEDS: methylPREDNISolone SOD SUCC 125 MG/2 ML VL IV SCH ×3 (06:30→17:54)
--- NOTE | 2018-12-07 06:45 | NUR ---
Patient requested to get PRN Lorazepam, took it as home PRN anxiety medication, but cannot provide exact dosage at this time.
--- NOTE | 2018-12-07 06:45 | NUR ---
Patient requested to get PRN home anxiety medication, Lorazepam but does not know exact dosage. Addendum: 12/07/18 at 6691 by AVA VILLAFANA RN please disregard
[2018-12-07] MEDS: ALBUTEROL SULF 2.5 MG/0.5ML(0.5%) NEB SOLN NEB SCH ×4 (07:32→18:58)
[2018-12-07] MEDS: IPRATROPIUM BROM 0.5 MG/2.5ML INH SOL NEB SCH ×4 (07:32→18:58)
[2018-12-07] MEDS: Ensure Enlive Strawberry 8oz Bottle PO SCH ×3 (08:30→18:00)
[2018-12-07 09:00] VITALS: BP 139/75
--- NOTE | 2018-12-07 09:10 | NUR ---
Dr. Marcelino returned called updated on patient status and reason for call, orders received to provide PRN anxiety medication. Continue care.
[2018-12-07] MEDS: BUDESONIDE (INHALATION) 0.5 MG/2 ML NEB NEB SCH ×2 (10:17→18:58)
[2018-12-07] MEDS: ASPirin 81 mg TAB PO SCH (10:35)
[2018-12-07] MEDS: FAMOTIDINE 20 MG TAB PO SCH ×2 (10:35→21:45)
[2018-12-07] MEDS: DOCUSATE SOD 100 MG CAP PO SCH ×2 (10:35→21:22)
[2018-12-07] MEDS: NYSTATIN TOPICAL POWDER 15GM TOP SCH ×2 (10:40→22:00)
[2018-12-07] MEDS: ENOXAPARIN SOD 40 MG/0.4 ML SYRINGE SC SCH (10:46)
[2018-12-07] MEDS: DOXYCYCLINE 100 MG TAB/CAP PO SCH ×2 (10:46→21:22)
[2018-12-07] MEDS: diphenhdrAMINE HCL 50 MG/1 ML VL IV PRN (11:57)
--- NOTE | 2018-12-07 12:05 | NUR ---
ENT consult update Patient's current insurance is not cover visit to Dr. Patel's office for ENT consult. Patient has to make an appointment with Dr. Gillian Madrigal, [phone]. [id number] [facility], [id number]. Will inform to patient and shift stacker RN.
[2018-12-07 13:00] VITALS: BP 155/81
--- NOTE | 2018-12-07 16:00 | NUR ---
13:54 _D/c'd 10L oxygen with Oxymizer as suggestion of RT Sofia Conde 13:20 patient complained of sinus pain 13:30 patient called RT and primary RN Ashli to check small amount of sputum covered with blood 13:40 called RT Sofia Conde... d/c Oxymizer which can cause dryness ... RT said she will come and reassess pt after 13:54 administer 4L (patient preferred to receive 4L than 3L) oxygen via NC with humidifier 16:00 re-assessed patient_ patient stated it is ok to breathing now with 4L Oxygen with Humidifier will inform cook night RN Shakira.
--- NOTE | 2018-12-07 16:00 | NUR ---
gave report to CRYSTAL Camacho.
--- NOTE | 2018-12-07 16:45 | NUR ---
provided updated ENT Doctor's information to patient and NOC MISSY Rosenberg.
[2018-12-07 17:00] VITALS: BP 133/91
[2018-12-07] MEDS: ATORVASTATIN 20 MG TAB PO SCH (21:21)
[2018-12-07] MEDS: LORazepam 0.5 MG TAB PO PRN (21:24)
[2018-12-07 21:53] VITALS: BP 142/78
[2018-12-08] MEDS: methylPREDNISolone SOD SUCC 125 MG/2 ML VL IV SCH ×5 (02:29→23:40)
[2018-12-08 04:50] VITALS: BP 155/82
--- NOTE | 2018-12-08 06:01 | NUR ---
PT STATES HER EASON IS LEAKING;WILL NOTIFY HOSPITALIST.
--- NOTE | 2018-12-08 06:03 | NUR ---
HOSPITALIST PAGED VIA PBX;AWAITING CALL BACK TO POSSIBLY PULL EASON AND LEAVE OUT..........
[2018-12-08 06:27] LABS: Calcium 8.9 mg/dL (8.5-10.1); Potassium 4.7 mmol/L (3.5-5.1)
[2018-12-08 06:30] LABS: BUN/Creatinine Ratio 44.1
[2018-12-08 06:55] LABS: Basophils # (auto) 0 uL; Basophils % (auto) 0.1 % (0.0-2.0); Eosinophils # (auto) 0 uL; Hematocrit 47.5 % (36.0-46.0); Hemoglobin 15.9 g/dL (12.2-16.2); Lymphocytes # (auto) 0.2 uL; Lymphocytes % (auto) 2.1 % (10.0-50.0); Mean Corpuscular Hemoglobin 31.7 pg (28.0-32.0); Mean Corpuscular Hgb Conc. 33.4 g/dL (32.0-36.0); Mean Corpuscular Volume 94.8 fL (80.0-100.0); Monocytes # (auto) 0.4 uL; Monocytes % (auto) 3.6 % (0.0-12.0); Neutrophils % (auto) 94.2 % (37.0-80.0); Nucleated Red Blood Cells % 0.4 %; Platelet Count (auto) 246 10^3/uL (140-450); Red Blood Cells 5.01 10^6/uL (4.0-5.20); Red Cell Distribution Width 13.9 % (11.8-14.3); White Blood Cell 10.6 10^3/uL (4.4-10.8)
[2018-12-08] MEDS: IPRATROPIUM BROM 0.5 MG/2.5ML INH SOL NEB SCH ×4 (07:05→18:48)
[2018-12-08] MEDS: ALBUTEROL SULF 2.5 MG/0.5ML(0.5%) NEB SOLN NEB SCH ×4 (07:06→18:48)
--- NOTE | 2018-12-08 07:30 | NUR ---
Open Shift Note Received report on patient, awake and sitting on side of bed. Patient shows no signs of distress. Patient states they are angry because they did not get any sleep last night because of employees entering the room. Discussed POC with patient, bed in lowest locked position, side rails up x2, and call light within reach. Will continue to monitor.
[2018-12-08 09:00] VITALS: BP 130/71
[2018-12-08] MEDS: ASPirin 81 mg TAB PO SCH (09:55)
[2018-12-08] MEDS: Ensure Enlive Strawberry 8oz Bottle PO SCH ×3 (09:55→18:45)
[2018-12-08] MEDS: FAMOTIDINE 20 MG TAB PO SCH ×2 (09:56→21:48)
[2018-12-08] MEDS: DOXYCYCLINE 100 MG TAB/CAP PO SCH ×2 (09:56→21:48)
[2018-12-08] MEDS: DOCUSATE SOD 100 MG CAP PO SCH ×2 (09:56→21:48)
[2018-12-08] MEDS: ENOXAPARIN SOD 40 MG/0.4 ML SYRINGE SC SCH (09:56)
[2018-12-08] MEDS: NYSTATIN TOPICAL POWDER 15GM TOP SCH ×2 (09:57→21:49)
[2018-12-08] MEDS: HYDROcodone-ACET 5/325MG TAB PO PRN (10:23)
[2018-12-08] MEDS: BUDESONIDE (INHALATION) 0.5 MG/2 ML NEB NEB SCH ×2 (10:43→18:48)
[2018-12-08 13:00] VITALS: BP 146/60
[2018-12-08 17:00] VITALS: BP 160/91
--- NOTE | 2018-12-08 18:06 | NUR ---
Re: [employer] Patient had [employer] delivered to patient's room. Educated patient that they are on on a cardiac diet and the importance of remaining on the doctor's ordered diet. Patient verbalized understanding but stated "I know, but do you think I care?". Continued to educate patient that they are to remain on a cardiac diet. Patient refusing to comply.
--- NOTE | 2018-12-08 19:23 | NUR ---
Opening Shift Note Assumed care of patient, awake and alert. No S/S of distress/SOB or pain. Instructed on POC and to call for assist PRN, will continue to monitor for changes Q1hr and PRN.
--- NOTE | 2018-12-08 19:41 | NUR ---
End of Shift Endorsed care to [facility] nurse Bullock. Patient shows no signs of distress at this time. Bed in lowest locked position, side rails up x2, and call light within reach.
--- NOTE | 2018-12-08 20:09 | NUR ---
Patient has pizza boxes and 2 bottles of pepsi at bedside. Educated patient about her cardiac diet. Patient verbalized understanding but stated she could do what she wanted.
--- NOTE | 2018-12-08 20:09 | NUR ---
RT called back, informed them of patient request. Addendum: 12/09/18 at 0359 by PATIENCE PENA RN RN RT called back at 21:09.
--- NOTE | 2018-12-08 21:02 | NUR ---
Paged RT per patient request.
--- NOTE | 2018-12-08 21:12 | NUR ---
[place] tubing for oxygen via nasal cannula given to patient because she stated that she was not getting enough oxygen via the longer tubing to reach her bedside commode. Patient is not complaining of SOB or pain or distress at this time.
--- NOTE | 2018-12-08 21:19 | NUR ---
Patient called the nursing station to ask to switch back to longer tubing because it was wrapping around her neck and it was too short.
[2018-12-08] MEDS: ATORVASTATIN 20 MG TAB PO SCH (21:49)
[2018-12-08 22:00] VITALS: BP 139/81
[2018-12-08] MEDS: diphenhdrAMINE HCL 50 MG/1 ML VL IV PRN (23:40)
[2018-12-09] MEDS: HYDROcodone-ACET 5/325MG TAB PO PRN (03:35)
[2018-12-09 05:30] VITALS: BP 172/93
[2018-12-09] MEDS: methylPREDNISolone SOD SUCC 125 MG/2 ML VL IV SCH ×4 (05:45→23:50)
[2018-12-09 06:14] VITALS: BP 147/86
--- NOTE | 2018-12-09 06:51 | NUR ---
Closing shift note Patient is resting in bed. No S/S of distress noted at this time. Patient states she feels out of breath when she exerts herself and that she has pain in her shoulders. No pain medications are due yet, patient recently received [place]. Patient is on 5 L/min via nasal cannula with humidifier. Will endorse care to dayshift RN.
[2018-12-09] MEDS: ALBUTEROL SULF 2.5 MG/0.5ML(0.5%) NEB SOLN NEB SCH ×4 (06:54→19:28)
[2018-12-09] MEDS: IPRATROPIUM BROM 0.5 MG/2.5ML INH SOL NEB SCH ×4 (06:54→19:28)
[2018-12-09] MEDS: Ensure Enlive Strawberry 8oz Bottle PO SCH ×3 (08:00→17:35)
--- NOTE | 2018-12-09 08:10 | NUR ---
Opening Shift Note Assumed care of patient, awake and alert. No S/S of distress/SOB or pain. Instructed on POC and to call for assist PRN, bed in lowest position, call light within reach, bed rails up x2. Will continue to monitor for changes Q1hr and PRN.
[2018-12-09 09:00] VITALS: BP 158/94
[2018-12-09] MEDS: BUDESONIDE (INHALATION) 0.5 MG/2 ML NEB NEB SCH ×2 (10:06→22:23)
[2018-12-09] MEDS: ENOXAPARIN SOD 40 MG/0.4 ML SYRINGE SC SCH (10:20)
[2018-12-09] MEDS: DOCUSATE SOD 100 MG CAP PO SCH ×2 (10:20→22:22)
[2018-12-09] MEDS: FAMOTIDINE 20 MG TAB PO SCH ×2 (10:20→22:22)
[2018-12-09] MEDS: ASPirin 81 mg TAB PO SCH (10:20)
[2018-12-09] MEDS: DOXYCYCLINE 100 MG TAB/CAP PO SCH ×2 (10:20→22:22)
[2018-12-09] MEDS: NYSTATIN TOPICAL POWDER 15GM TOP SCH ×2 (10:21→22:23)
--- NOTE | 2018-12-09 11:44 | NUR ---
Nutrition Follow-up Notes Wt.: 98.2 kg Pt's on Oxymizer, asleep, no immediate family member at bedside during rounds this morning. Pt's no signs of distress noted earlier, currently on Cardiac: 2 gms Na, Low Chol, Low Fat mech soft diet with adequate PO of 100% x 5 per RN doc along with ensure enlive TID Est. Needs BW [id number] kcal (20-23 kcal/kgBW), 71-78 gms pro (1.0-1.1 gms/kgBW). Will continue to monitor pertinent labs and reassess nutrient need prn Labs: BUN 30 H, GLU 172 H, CO2 37 H, Skin: Sourav scale 14, mod risk, pt's right lower extremity open wound per food tester. Pls refer for Wound care consult prn. GI: Pt had 1 BM on 12/08 per food tester. PES: Altered nutrition related lab values r/t current/chronic medical condition aeb elev BUN, hypocalcemia, mild hypoalb Obesity r/t food intake more than body requirement aeb 240% IBW. BMI 48.4 kg/m2 and increased body adiposity. Will continue to monitor PO intake, skin status, pertinent labs and weight trend. F/u in 3 to 5 days. Rec.: 1.) Consider to continue monitoring pertinent labs; If Albumin level continues trending down, consider Prostat 1 pkt BID. 3.) Consider daily MVI with minerals and Asc acid 500 mgs BID. 3.) Consider to D/C ensure enlive as pt with adequate PO and obese. 4.) Refer pt to RD for further nutrition education and weight monitoring upon discharge. 5.) Continue current plan of care.
--- NOTE | 2018-12-09 12:15 | NUR ---
ROUNDS Dr Bethea at bedside for rounds, new orders received and followed through. Patient updated on plan of care, verbalized understanding.
[2018-12-09 13:00] VITALS: BP 133/80
[2018-12-09] MEDS: ACETYLCYSTEINE 10 %(100MG/ML) SOL 4ML NEB SCH ×3 (14:46→22:23)
[2018-12-09] MEDS: diphenhdrAMINE HCL 50 MG/1 ML VL IV PRN (16:21)
[2018-12-09 17:00] VITALS: BP 143/93
--- NOTE | 2018-12-09 19:01 | NUR ---
Care endorsed to MISSY Angel, night nurse.
--- NOTE | 2018-12-09 19:39 | NUR ---
Opening Shift Note Assumed care of patient, awake and alert. No S/S of distress/SOB or pain. Flores emptied: 1025 ml removed. Instructed on POC and to call for assist PRN, will continue to monitor for changes Q1hr and PRN.
[2018-12-09] MEDS: LORazepam 0.5 MG TAB PO PRN (19:59)
[2018-12-09] MEDS: ATORVASTATIN 20 MG TAB PO SCH (22:22)
[2018-12-09 23:57] VITALS: BP 140/87
[2018-12-10] MEDS: ACETYLCYSTEINE 10 %(100MG/ML) SOL 4ML NEB SCH ×6 (02:05→22:06)
[2018-12-10 05:00] VITALS: BP 142/80
[2018-12-10] MEDS: methylPREDNISolone SOD SUCC 125 MG/2 ML VL IV SCH ×2 (05:59→12:23)
[2018-12-10] MEDS: Ensure Enlive Strawberry 8oz Bottle PO SCH ×3 (07:27→17:34)
--- NOTE | 2018-12-10 07:55 | NUR ---
Opening Shift Note Assumed care of patient, sleeping at this time. No S/S of distress/SOB or pain. Instructed on POC and to call for assist PRN, bed in lowest position, call light with in reach, bed rails up x2. Will continue to monitor for changes Q1hr and PRN.
[2018-12-10] MEDS: ALBUTEROL SULF 2.5 MG/0.5ML(0.5%) NEB SOLN NEB SCH ×5 (08:10→22:06)
[2018-12-10] MEDS: IPRATROPIUM BROM 0.5 MG/2.5ML INH SOL NEB SCH ×5 (08:10→22:06)
--- NOTE | 2018-12-10 08:10 | NUR ---
RT NOTE: PT REFUSED TX AT THIS TIME. NO SIGNS OF RESPIRATORY DISTRESS NOTED. LUNG SOUNDS CLEAR T/O. ON 5LNC SPO2 93 HR 90 RR 20. PT AWARE THAT I WOULD RETURN FOR NEXT SCHEDULED TX. WILL CONTINUE TO MONITOR.
[2018-12-10 08:43] VITALS: BP 163/99
[2018-12-10] MEDS: DOCUSATE SOD 100 MG CAP PO SCH ×2 (09:55→22:03)
[2018-12-10] MEDS: ENOXAPARIN SOD 40 MG/0.4 ML SYRINGE SC SCH (09:55)
[2018-12-10] MEDS: ASPirin 81 mg TAB PO SCH (09:55)
[2018-12-10] MEDS: NYSTATIN TOPICAL POWDER 15GM TOP SCH ×2 (09:56→22:03)
[2018-12-10] MEDS: DOXYCYCLINE 100 MG TAB/CAP PO SCH (09:56)
[2018-12-10] MEDS: FAMOTIDINE 20 MG TAB PO SCH ×2 (09:56→22:03)
[2018-12-10] MEDS: BUDESONIDE (INHALATION) 0.5 MG/2 ML NEB NEB SCH ×2 (10:24→18:51)
[2018-12-10] MEDS: LORazepam 0.5 MG TAB PO PRN (10:28)
[2018-12-10 12:53] VITALS: BP 128/75
--- NOTE | 2018-12-10 13:00 | NUR ---
ROUNDS Dr Bethea at bedside for rounds, new orders received and followed through. Patient updated on plan of care, verbalized understanding.
[2018-12-10 16:20] VITALS: BP 151/92
--- NOTE | 2018-12-10 19:13 | NUR ---
Care endorsed to MISSY Angel, night nurse.
[2018-12-10 22:00] VITALS: BP 132/78
[2018-12-10] MEDS: predniSONE 20 MG TAB PO SCH (22:02)
[2018-12-10] MEDS: ATORVASTATIN 20 MG TAB PO SCH (22:02)
[2018-12-11 01:53] VITALS: BP 132/78
[2018-12-11] MEDS: IPRATROPIUM BROM 0.5 MG/2.5ML INH SOL NEB SCH ×4 (02:44→14:42)
[2018-12-11] MEDS: ALBUTEROL SULF 2.5 MG/0.5ML(0.5%) NEB SOLN NEB SCH ×6 (02:44→22:25)
[2018-12-11] MEDS: ACETYLCYSTEINE 10 %(100MG/ML) SOL 4ML NEB SCH ×6 (02:44→22:24)
[2018-12-11] MEDS: HYDROcodone-ACET 5/325MG TAB PO PRN ×2 (03:25→19:28)
[2018-12-11 05:00] VITALS: BP 130/67
--- NOTE | 2018-12-11 06:57 | NUR ---
Closing Shift Note Patient is resting in bed. NO S/S of distress, pain, or SOB. Will endorse care to dayshift RN.
[2018-12-11] MEDS: BUDESONIDE (INHALATION) 0.5 MG/2 ML NEB NEB SCH ×2 (07:30→18:32)
[2018-12-11] MEDS: Ensure Enlive Strawberry 8oz Bottle PO SCH ×2 (07:58→11:43)
--- NOTE | 2018-12-11 08:00 | NUR ---
Opening Shift Note Assumed care of patient, awake and alert. No S/S of distress/SOB or pain. Instructed on POC and to call for assist PRN, will continue to monitor for changes Q1hr and PRN. Flores catheter present, free of kinks, and hanging to gravity.
[2018-12-11 08:39] VITALS: BP 149/79
[2018-12-11] MEDS: LEVOFLOXACIN 500 MG TAB PO SCH (10:04)
[2018-12-11] MEDS: FAMOTIDINE 20 MG TAB PO SCH ×2 (10:06→20:11)
[2018-12-11] MEDS: ASPirin 81 mg TAB PO SCH (10:06)
[2018-12-11] MEDS: DOCUSATE SOD 100 MG CAP PO SCH ×2 (10:06→20:10)
[2018-12-11] MEDS: predniSONE 20 MG TAB PO SCH ×2 (10:16→20:10)
[2018-12-11] MEDS: NYSTATIN TOPICAL POWDER 15GM TOP SCH ×2 (10:20→20:11)
[2018-12-11 13:00] VITALS: BP 121/76
--- NOTE | 2018-12-11 16:27 | NUR ---
Called/paged Dr. lee called re:ABG results. Waiting for call back. Continue care.
[2018-12-11 16:31] VITALS: BP 121/79
--- NOTE | 2018-12-11 16:59 | NUR ---
returned call Dr. Hernandez returned call, updated on patient status and reason for call- ABG result. orders received to redraw ABG in the morning. Continue care.
--- NOTE | 2018-12-11 18:00 | NUR ---
Patient has pizza boxes and bread stick boxes of t bedside. Educated patient about her cardiac diet. Patient verbalized understanding but stated she could do what she wanted.
--- NOTE | 2018-12-11 19:22 | NUR ---
RECEIVED PATIENT LYING IN BED AWAKE, ALERT, ORIENTED X4. NO S/S OF RESPIRATORY DISTRESS, DENIES SOB AND CHEST PAIN. ORIENTED ON PLAN OF CARE. BED IS LOCKED AND IN LOWEST LEVEL, SIDE RAILS UP X2, CALL LIGHT WITHIN REACH. WILL CONTINUE TO MONITOR
--- NOTE | 2018-12-11 19:50 | NUR ---
CARE ENDORSED TO MISSY MARMOLEJO
--- NOTE | 2018-12-11 19:51 | NUR ---
REPORT RECEIVED FROM MISSY SAMS
--- NOTE | 2018-12-11 19:54 | NUR ---
OPENING NOTE REPORT RECEIVED FROM [facility] RN LATRELL. INTRODUCED MYSELF TO PATIENT THAT I WOULD BE TAKING OVER. PATIENT APPEARS UPSET AND STATES THAT HER ROOM WAS CLEANED WITH BLEACH EARLIER TODAY AND SHE HAS SINCE THEN FELT SOB. PATIENT UPSET THAT HER ROOM IS CLEANED EVERYDAY WITH BLEACH ALTHOUGH THERE IS A SIGN OUTSIDE OF THE ROOM STATING OTHERWISE. PATIENT ALSO UPSET THAT SHE HAS HAD A HEADACHE "ALL DAY" SINCE THE BLEACH WAS USED TO CLEAN HER ROOM. EDUCATED PATIENT THAT WE WILL ENDORSE TO [facility] PERSONNEL TO ABIDE BY SIGN PLACED OUTSIDE OF ROOM. PATIENT STATES, "YEAH EVERYONE SAYS THEY ARE GOING TO TAKE CARE OF IT BUT YET EVERYDAY THEY KEEP CLEANING WITH BLEACH!". THIS RN AND STUDENT NURSE ROC USED ACTIVE LISTENING TO LISTEN TO PATIENT VERBALIZE ALL FRUSTRATION. POC FOR TONIGHT DISCUSSED. PATIENT REQUESTING ALL SCHEDULED 2200 MEDICATIONS TO BE GIVEN NOW BECAUSE SHE WOULD LIKE TO TRY AND REST. FULL ASSESSMENT DONE-SEE INTERVENTIONS. CALL LIGHT WITHIN REACH.
[2018-12-11] MEDS: ATORVASTATIN 20 MG TAB PO SCH (20:11)
--- NOTE | 2018-12-11 20:11 | NUR ---
2200 MEDICATIONS ADMINISTERED NOW PER PATIENT REQUEST
[2018-12-11] MEDS: LORazepam 0.5 MG TAB PO PRN (20:12)
--- NOTE | 2018-12-11 20:15 | NUR ---
WOUND NEW OPEN SKIN TEAR NOTED TO INNER BUTTOCKS. PATIENT STATES THAT WHEN SHE WAS CLEANED UP WITH A WASH RAG EARLIER, SHE WAS CLEANED "TOO HARD" WOUND PHOTO TAKEN. WOUND FORM FILLED AND PLACED IN WOUND CARE BASKET
[2018-12-11 21:57] VITALS: BP 136/87
[2018-12-12] MEDS: ALBUTEROL SULF 2.5 MG/0.5ML(0.5%) NEB SOLN NEB SCH ×5 (02:00→18:47)
[2018-12-12] MEDS: ACETYLCYSTEINE 10 %(100MG/ML) SOL 4ML NEB SCH ×6 (02:00→22:16)
--- NOTE | 2018-12-12 03:30 | NUR ---
PATIENT FOUND FORCEFULLY BLOWING NOSE PATIENT ABLE TO PRODUCE BLOODY MUCUS FROM NOSTRIL AFTER REPEATEDLY AND FORCEFULLY BLOWING NOSE. PATIENT SAVING TISSUE AT BEDSIDE FOR MD TO SEE. PATIENT STATES, "YOU SEE THIS CAME FROM MY SINUS BECAUSE THEY CLEANED WITH BLEACH IN HERE YESTERDAY".
[2018-12-12 05:00] VITALS: BP 138/76
--- NOTE | 2018-12-12 06:00 | NUR ---
PAIN PATIENT C/O BACK PAIN OFFERED PATIENT NORCO, PATIENT REFUSES AT THIS TIME AND STATES, "NO, I WANT TO BE ABLE TO STAY AWAKE TO EAT". OFFERED PATIENT HOT PACK, PATIENT ALSO REFUSED AND STATES, "IT DOESN'T HELP AT ALL, ITS MY L5 AND L6 DISCS BEING CRUSHED, A HOT PACK WON'T HELP". PATIENT EDUCATED THAT NORCO IS AVAILABLE IF NEEDED AND THAT REPOSITIONING AND HOT PACKS MAY HELP RELIEVE SOME PAIN. PATIENT REFUSES ALL METHODS AT THIS TIME. CALL LIGHT WITHIN REACH.
[2018-12-12] MEDS: IPRATROPIUM BROM 0.5 MG/2.5ML INH SOL NEB SCH ×3 (06:51→18:47)
--- NOTE | 2018-12-12 07:32 | NUR ---
CLOSING NOTE REPORT ENDORSED TO DAY SHIFT RN PATIENT IS SITTING UP AT BEDSIDE. NO S/S OF DISTRESS NOTED. PT ON 4L NC. CALL LIGHT WITHIN REACH.
--- NOTE | 2018-12-12 07:40 | NUR ---
Opening Shift Note Assumed care of patient, awake and alert. No c/o pain. No s/s of sob/distress. Bed at lowest position and call light within reach. Instructed on POC and to call for assist PRN, will continue to monitor for changes Q1hr and PRN.
[2018-12-12 08:00] VITALS: BP 136/76
[2018-12-12] MEDS: Ensure Enlive Strawberry 8oz Bottle PO SCH ×4 (08:00→18:30)
[2018-12-12 09:00] VITALS: BP 136/76
[2018-12-12] MEDS: ASPirin 81 mg TAB PO SCH (09:00)
[2018-12-12] MEDS: DOCUSATE SOD 100 MG CAP PO SCH ×2 (09:00→21:25)
[2018-12-12] MEDS: FAMOTIDINE 20 MG TAB PO SCH ×2 (09:01→21:25)
[2018-12-12] MEDS: LEVOFLOXACIN 500 MG TAB PO SCH (09:01)
[2018-12-12] MEDS: HYDROcodone-ACET 5/325MG TAB PO PRN (09:14)
[2018-12-12] MEDS: LORazepam 0.5 MG TAB PO PRN ×2 (09:15→19:35)
[2018-12-12] MEDS: predniSONE 20 MG TAB PO SCH ×2 (09:15→21:25)
[2018-12-12] MEDS: BUDESONIDE (INHALATION) 0.5 MG/2 ML NEB NEB SCH ×2 (10:12→22:16)
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
[2018-12-12 13:00] VITALS: BP 91/58
--- NOTE | 2018-12-12 13:10 | NUR ---
WOUND CARE NOTE: IN TO SEE PATIENT AT THIS TIME FOR NEW WOUND CONCERN. PATIENT HAS DEVELOPED A MOISTURE RELATED DERMATITIS TO INTRAGLUTEAL FOLD SACRUM. SKIN IS DARK RED, FLAKY SKIN NOTED. APPLIED ZGUARD, OPTIFOAM GENTLE DRESSING. WOUND PHOTO WAS TAKEN UPON ASSESSMENT. PATIENT HAS CURRENT KAMRAN SCORE OF 18. PATIENT IS AMBULATORY, CAN SELF TURN/REPOSITION SELF. RECOMMEND: BID/PRN APPLICATION WITH ZGUARD TO INTRAGLUTEAL FOLD, COVERING SKIN WITH OPTIFOAM GENTLE DRESSING TO COVER AND PROTECT. SKIN/WOUND CARE PLAN UPDATED AT THIS TIME. WOUND CARE TEAM WILL CONTINUE TO MONITOR. Addendum: 12/12/18 at 1834 by Roseann Miguel RN Amended: Links added.
[2018-12-12] MEDS: NYSTATIN TOPICAL POWDER 15GM TOP SCH ×3 (15:27→22:00)
--- NOTE | 2018-12-12 18:51 | NUR ---
end of shift note: Patient is sitting at edge of bed, no c/o pain, so s/s of distress noted/stated. Bed at lowest position and call light at reach. Will endorse care to NOC RN.
[2018-12-12] MEDS: ATORVASTATIN 20 MG TAB PO SCH (21:25)
--- NOTE | 2018-12-12 22:02 | NUR ---
PATIENT REFUSED VITALS AT 2200.
[2018-12-13] MEDS: ACETYLCYSTEINE 10 %(100MG/ML) SOL 4ML NEB SCH ×6 (02:13→22:03)
[2018-12-13 05:00] VITALS: BP 126/75
[2018-12-13 06:17] LABS: Basophils # (auto) 0 uL; Basophils % (auto) 0.5 % (0.0-2.0); Eosinophils # (auto) 0 uL; Eosinophils % (auto) 0.5 % (0.0-7.0); Hematocrit 43.8 % (36.0-46.0); Hemoglobin 14.6 g/dL (12.2-16.2); Lymphocytes # (auto) 0.3 uL; Lymphocytes % (auto) 3.1 % (10.0-50.0); Mean Corpuscular Hemoglobin 31.6 pg (28.0-32.0); Mean Corpuscular Hgb Conc. 33.4 g/dL (32.0-36.0); Mean Corpuscular Volume 94.5 fL (80.0-100.0); Monocytes # (auto) 0.3 uL; Monocytes % (auto) 3.5 % (0.0-12.0); Neutrophils # (auto) 8.2 uL; Neutrophils % (auto) 92.4 % (37.0-80.0); Platelet Count (auto) 144 10^3/uL (140-450); Red Blood Cells 4.63 10^6/uL (4.0-5.20); Red Cell Distribution Width 14.5 % (11.8-14.3); White Blood Cell 8.9 10^3/uL (4.4-10.8)
[2018-12-13 06:21] LABS: Albumin 2.3 g/dL (3.4-5.0); Calcium 8.4 mg/dL (8.5-10.1); Potassium 4.5 mmol/L (3.5-5.1)
[2018-12-13 06:27] LABS: BUN/Creatinine Ratio 51.1; Bilirubin, Total 0.7 mg/dL (0.2-1.0); Total Protein 6.1 g/dL (6.4-8.2)
[2018-12-13] MEDS: ALBUTEROL SULF 2.5 MG/0.5ML(0.5%) NEB SOLN NEB SCH ×5 (06:33→22:04)
[2018-12-13] MEDS: IPRATROPIUM BROM 0.5 MG/2.5ML INH SOL NEB SCH ×5 (06:33→22:04)
[2018-12-13] MEDS: Ensure Enlive Strawberry 8oz Bottle PO SCH ×3 (07:40→18:59)
[2018-12-13 08:00] VITALS: BP 120/76
[2018-12-13] MEDS: BUDESONIDE (INHALATION) 0.5 MG/2 ML NEB NEB SCH ×2 (10:02→22:03)
[2018-12-13] MEDS: DOCUSATE SOD 100 MG CAP PO SCH ×2 (10:14→22:43)
[2018-12-13] MEDS: predniSONE 20 MG TAB PO SCH ×2 (10:14→22:43)
[2018-12-13] MEDS: LORazepam 0.5 MG TAB PO PRN ×2 (10:14→22:43)
[2018-12-13] MEDS: FAMOTIDINE 20 MG TAB PO SCH ×2 (10:14→22:43)
[2018-12-13] MEDS: ASPirin 81 mg TAB PO SCH (10:14)
[2018-12-13] MEDS: LEVOFLOXACIN 500 MG TAB PO SCH (10:14)
[2018-12-13 12:49] VITALS: BP 126/75
[2018-12-13] MEDS ORDERED: HYDROcodone-ACET 5/325MG TAB PO ONE (14:30)
[2018-12-13] MEDS: NYSTATIN TOPICAL POWDER 15GM TOP SCH ×2 (15:01→22:43)
--- NOTE | 2018-12-13 16:10 | NUR ---
Patient c/o discomfort at the Flores catheter site, pateint started tugging on it and screaming "take it out right now, or i will". Assessed the site no redness/swelling in outer area. Advised the patient to stay calm notified MD. Will continue to monitor .
--- NOTE | 2018-12-13 16:59 | NUR ---
Flores catheter dc'd Order to discontinue Flores catheter. Flores dc'd with clean technique following deflation of balloon. Patient tolerated well with no complaints of pain. Will continue to monitor.
--- NOTE | 2018-12-13 17:00 | NUR ---
Will continue to measure I&O's, SCHOOL COORDINATOR aware.
--- NOTE | 2018-12-13 18:57 | NUR ---
end of shift note: Patient sitting up in bed, no s/s of distress/SOB noted/stated, NC at 4L. Bed at lowest position and call light at reach. Will endorse care to NOC RN.
[2018-12-13 22:00] VITALS: BP 138/90
[2018-12-13] MEDS: ATORVASTATIN 20 MG TAB PO SCH (22:43)
[2018-12-14] MEDS: ACETYLCYSTEINE 10 %(100MG/ML) SOL 4ML NEB SCH ×6 (02:34→22:07)
[2018-12-14 05:00] VITALS: BP 119/77
[2018-12-14] MEDS: LORazepam 0.5 MG TAB PO PRN ×2 (05:44→20:22)
[2018-12-14] MEDS: IPRATROPIUM BROM 0.5 MG/2.5ML INH SOL NEB SCH ×3 (05:53→14:08)
[2018-12-14] MEDS: ALBUTEROL SULF 2.5 MG/0.5ML(0.5%) NEB SOLN NEB SCH ×5 (05:53→22:07)
--- NOTE | 2018-12-14 07:50 | NUR ---
Opening Shift Note Assumed care of pt., sleeping supine in bed. No S/S of distress or SOB. O2 Nasal cannula 4L. Bed locked in lowest position, call light within reach. Will continue to monitor Q1HR and PRN throughout the shift.
[2018-12-14 08:31] VITALS: BP 127/64
[2018-12-14] MEDS: BUDESONIDE (INHALATION) 0.5 MG/2 ML NEB NEB SCH ×2 (09:32→22:06)
--- NOTE | 2018-12-14 09:40 | NUR ---
Dr. Marcelino at bedside
[2018-12-14] MEDS: Ensure Enlive Strawberry 8oz Bottle PO SCH ×3 (11:11→18:00)
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
[2018-12-14] MEDS: predniSONE 20 MG TAB PO SCH ×2 (11:21→20:21)
[2018-12-14] MEDS: ASPirin 81 mg TAB PO SCH (11:21)
[2018-12-14] MEDS: LEVOFLOXACIN 500 MG TAB PO SCH (11:21)
[2018-12-14] MEDS: FAMOTIDINE 20 MG TAB PO SCH ×2 (11:21→20:21)
[2018-12-14] MEDS: DOCUSATE SOD 100 MG CAP PO SCH ×2 (11:21→20:20)
[2018-12-14] MEDS: NYSTATIN TOPICAL POWDER 15GM TOP SCH ×2 (11:23→20:22)
[2018-12-14 11:47] VITALS: BP 135/68
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
[2018-12-14 16:54] VITALS: BP 120/78
--- NOTE | 2018-12-14 19:50 | NUR ---
RECEIVED PATIENT IN BED, AAOX4. NO DISTRESS NOTED. AFEBRILE. WITH MILD SOB NOTED ON EXERTION. PATIENT IS VERY ANXIOUS. LUNG SOUND ARE DIMINISHED ALL OVER. O2 IS ON. PATIENT IS CRANKY. MILD BLE WEAKNESS NOTED. POCS DISCUSSED WITH PATIENT AND SHOWED UNDERSTANDING. BED KEPT ON LOWEST POSITION. SIDE RAILS UP. CALL LIGHT/TABLE IN REACH. KEPT COMFORTABLE.
[2018-12-14] MEDS: ATORVASTATIN 20 MG TAB PO SCH (20:21)
[2018-12-14] MEDS: ACETAMINOPHEN 325 MG TAB PO PRN (20:21)
[2018-12-14 22:00] VITALS: BP 135/84
--- NOTE | 2018-12-14 22:00 | NUR ---
PATIENT CONTINUES TO CALL EVERY 30 OR 15 MINUTES TO USE THE COMMODE, REQUEST FOR HOT WATER, VOVER HER WITH A BLANKET, PROP THE PILLOWS, ETC. PATIENT REMAINS UNGRATEFUL AND ANGRY.
--- NOTE | 2018-12-15 | NUR ---
PATIENT GOT MAD KNOWING THAT TYLENOL IS THE PAIN MED ORDERED FOR HER. SHE SAID SHE WILL SPEAK WITH THE MD IN THE AM.
--- NOTE | 2018-12-15 02:00 | NUR ---
REFUSED TO FLUSH IV ACCESS. SHE SAID, TO STAY AWAY FROM HER BECAUSE OF MY STRONG SCENT. NOTED.
[2018-12-15] MEDS: ACETYLCYSTEINE 10 %(100MG/ML) SOL 4ML NEB SCH ×3 (02:09→10:57)
[2018-12-15] MEDS: ALBUTEROL SULF 2.5 MG/0.5ML(0.5%) NEB SOLN NEB SCH ×2 (02:09→10:55)
[2018-12-15] MEDS: LORazepam 0.5 MG TAB PO PRN (03:04)
[2018-12-15] MEDS: ACETAMINOPHEN 325 MG TAB PO PRN (03:24)
[2018-12-15 05:00] VITALS: BP 131/97
[2018-12-15 05:39] LABS: Basophils # (auto) 0 uL; Basophils % (auto) 0.3 % (0.0-2.0); Eosinophils # (auto) 0 uL; Eosinophils % (auto) 0.2 % (0.0-7.0); Hematocrit 41.8 % (36.0-46.0); Hemoglobin 13.8 g/dL (12.2-16.2); Lymphocytes # (auto) 0.3 uL; Lymphocytes % (auto) 3.1 % (10.0-50.0); Mean Corpuscular Hemoglobin 31.3 pg (28.0-32.0); Mean Corpuscular Volume 94.8 fL (80.0-100.0); Monocytes # (auto) 0.2 uL; Monocytes % (auto) 2.7 % (0.0-12.0); Neutrophils # (auto) 7.8 uL; Neutrophils % (auto) 93.7 % (37.0-80.0); Platelet Count (auto) 149 10^3/uL (140-450); Red Blood Cells 4.41 10^6/uL (4.0-5.20); Red Cell Distribution Width 14.3 % (11.8-14.3); White Blood Cell 8.4 10^3/uL (4.4-10.8)
[2018-12-15 05:48] LABS: BUN/Creatinine Ratio 38.5; Calcium 8.3 mg/dL (8.5-10.1); Potassium 4.5 mmol/L (3.5-5.1)
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
--- NOTE | 2018-12-15 06:38 | NUR ---
ON BED, AWAKE. NO CHANGES NOTED. FOR MORE CARE AND MANAGEMENT.
[2018-12-15] MEDS: Ensure Enlive Strawberry 8oz Bottle PO SCH ×2 (08:00→12:00)
--- NOTE | 2018-12-15 08:05 | NUR ---
Opening shift note Assume care of patient. Patient is alseep in her bed with eyed closed. Breakfast try sitting at bedside. Patient in no sign of distress. Will continue to monitor.
[2018-12-15 09:14] VITALS: BP_SYST 137; BP_SYST 99; BP_DIAS 74
[2018-12-15] MEDS: NYSTATIN TOPICAL POWDER 15GM TOP SCH (10:00)
[2018-12-15] MEDS: ASPirin 81 mg TAB PO SCH (10:16)
[2018-12-15] MEDS: FAMOTIDINE 20 MG TAB PO SCH (10:16)
[2018-12-15] MEDS: DOCUSATE SOD 100 MG CAP PO SCH (10:16)
[2018-12-15] MEDS: predniSONE 20 MG TAB PO SCH (10:17)
[2018-12-15] MEDS: LEVOFLOXACIN 500 MG TAB PO SCH (10:18)
[2018-12-15] MEDS: IPRATROPIUM BROM 0.5 MG/2.5ML INH SOL NEB SCH (10:55)
[2018-12-15] MEDS: BUDESONIDE (INHALATION) 0.5 MG/2 ML NEB NEB SCH (10:56)
[2018-12-15 12:48] VITALS: BP 141/82
[2018-12-15 12:51] VITALS: BP 141/82
--- NOTE | 2018-12-15 13:17 | NUR ---
DISCHARGE NOTE Discharge instructions given as ordered. Encourage to follow up with PMD as instructed. All questions and concerns addressed. Patient verbalized understanding. Medication reconciliation form completed and copy given to patient. IV removed with catheter intact, pressure dressing applied. Telemetry unit returned to ICU. Patient taken to vehicle via wheelchair with all personal belongings, accompanied by staff and family member. No distress noted at time of departure.
== END 2018-12-15 13:17 | disposition home or self-care (01) | DRG 190 ==
LOC: EDBD 22:28 → ER 22:28 → EDUNIT# 22:28 → TELE 11-28 05:34 → TELE-WESTW 11-28 17:00
PROVIDERS: ADMIT Nurse Practitioner; ATTEND Internal Medicine Pulmonary Disease
PROC: 5A09357 Assistance with Respiratory Ventilation, Less than 24 Consecutive Hours, Continuous Positive Airway Pressure (ICD-10-PCS; principal; 2018-11-28)
PROC: 5A09357 Assistance with Respiratory Ventilation, Less than 24 Consecutive Hours, Continuous Positive Airway Pressure (ICD-10-PCS; 2018-11-29)
DX: I21.A1 Myocardial infarction type 2 (principal); J96.22 Acute and chronic respiratory failure with hypercapnia; E43 Unspecified severe protein-calorie malnutrition; J44.0 Chronic obstructive pulmonary disease with (acute) lower respiratory infection; I11.0 Hypertensive heart disease with heart failure; I50.32 Chronic diastolic (congestive) heart failure; E66.2 Morbid (severe) obesity with alveolar hypoventilation; J45.901 Unspecified asthma with (acute) exacerbation; J44.1 Chronic obstructive pulmonary disease with (acute) exacerbation; N39.0 Urinary tract infection, site not specified; I87.2 Venous insufficiency (chronic) (peripheral); Z68.41 Body mass index [BMI] 40.0-44.9, adult; R73.9 Hyperglycemia, unspecified; J20.9 Acute bronchitis, unspecified; Z53.20 Procedure and treatment not carried out because of patient's decision for unspecified reasons; Z83.3 Family history of diabetes mellitus; Z87.891 Personal history of nicotine dependence; Z91.19 Patient's noncompliance with other medical treatment and regimen; Z99.81 Dependence on supplemental oxygen
CPT/HCPCS: 36415; 36600; 71045; 71046; 80048; 80053; 81001; 82805; 83036; 83735; 83880; 84484; 85025; 85379; 87081; 93005; 93306; 94640; 94644; 94660; 96365; 96366; 96372; 96375; A6257; G0378; J1956; J2405